=== PATIENT | male | born 1950 | race Caucasian/White ===

== ENCOUNTER 2017-07-11 10:15 | Inpatient (IN) | payer MEDICARE ==
[~2017-07-11] VITALS: Ht 172.7 cm; Wt 86.7 kg
[2017-07-11 11:05] LABS: BASOPHILS % (AUTO) 0.5 % (0.0-5.0); EOSINOPHILS % (AUTO) 2.5 % (0.0-8.0); MEAN CORPUSCULAR HEMOGLOBIN 31.7 pg (27.0-33.0); MEAN CORPUSCULAR HGB CONC 35.5 g/dL (32.0-36.0); MEAN CORPUSCULAR VOLUME 89.3 fL (79-99); MONOCYTES % (AUTO) 10.5 % (3.0-13.0); NEUTROPHILS % (AUTO) 51.5 % (40.0-77.0); NUCLEATED RED BLOOD CELLS 0.1 % (0.0-0.19); PLATELET COUNT (AUTO) 248 K/uL (130-400); RED BLOOD CELL COUNT(AUTO) 4.25 MIL/uL (4.50-6.20); RED CELL DISTRIBUTION WIDTH 14.9 % (11.0-15.5); WHITE BLOOD COUNT (AUTO) 9.4 K/uL (4.8-10.8)
[2017-07-11 11:54] LABS: CREATININE 0.7 mg/dL (0.5-1.5); POTASSIUM 3.9 mmol/L (3.5-5.1)
[2017-07-11 11:59] LABS: ALBUMIN 3.3 g/dL (3.5-5.0); BILIRUBIN,TOTAL 0.7 mg/dL (0.2-1.0); TOTAL PROTEIN, SERUM 6.2 g/dL (6.0-8.3)
[2017-07-11] MEDS ORDERED: FAMOTIDINE 20MG TAB 20 MG TAB ONE (21:28)
[2017-07-11] MEDS ORDERED: FUROSEMIDE 20 MG TABLET ONE (21:28)
[2017-07-11] MEDS ORDERED: ENOXAPARIN SODIUM 40 MG/0.4 ML SYRINGE SQ ONE (21:28)
[2017-07-12] MEDS ORDERED: ACETAMINOPHEN EXTRA STRENGTH 500 MG TABLET ONE (05:20)
[2017-07-12 08:14] VITALS: BP 158/91
[2017-07-12] MEDS ORDERED: FAMOTIDINE 20MG TAB 20 MG TAB ONE (08:50)
[2017-07-12] MEDS ORDERED: FAMOTIDINE 20MG TAB 20 MG TAB PO SCH (09:00)
[2017-07-12] MEDS ORDERED: ENOXAPARIN SODIUM 40 MG/0.4 ML SYRINGE SQ SCH (09:00)
[2017-07-12 14:38] VITALS: BP 148/59
[2017-07-12] MEDS ORDERED: IOPAMIDOL-370 75 ML VIAL IV ONE (14:59)
[2017-07-12 16:00] VITALS: BP 152/95
[2017-07-12] MEDS ORDERED: CALC-866 PO (17:52)
[2017-07-12] MEDS ORDERED: MULT-12 PO (17:52)
[2017-07-12] MEDS ORDERED: FAMO-136 PO (17:52)
[2017-07-12] MEDS ORDERED: ASPI-1197 PO (17:52)
[2017-07-12] MEDS ORDERED: CITA20TA17 PO (17:52)
[2017-07-12] MEDS ORDERED: LISI-613 PO (17:52)
[2017-07-12] MEDS ORDERED: APIX5TAB4 PO (17:52)
[2017-07-12] MEDS ORDERED: DILT180C63 PO (17:52)
[2017-07-12] MEDS ORDERED: ATOR10 PO (17:52)
[2017-07-12] MEDS ORDERED: FOLI1TAB15 PO (17:52)
[2017-07-12] MEDS ORDERED: DIGO0.12 PO (17:52)
[2017-07-12] MEDS ORDERED: METO-409 PO (17:52)
[2017-07-12 19:00] VITALS: BP 132/81
[2017-07-12] MEDS: ENOXAPARIN SODIUM 80 MG/0.8 ML SQ SCH (21:26)
[2017-07-12] MEDS ORDERED: MORPHINE SULFATE 2 MG/ML 1ML SYG ONE (22:34)
[2017-07-12] MEDS ORDERED: GABAPENTIN 300 MG CAPSULE ONE (22:35)
[2017-07-12] MEDS: GABAPENTIN 300 MG CAPSULE PO SCH (22:45)
[2017-07-13] VITALS: BP 154/78
[2017-07-13 04:00] VITALS: BP 153/85
[2017-07-13 04:18] LABS: MEAN CORPUSCULAR HGB CONC 35.6 g/dL (32.0-36.0); MEAN CORPUSCULAR VOLUME 89.9 fL (79-99); NUCLEATED RED BLOOD CELLS 0.1 % (0.0-0.19); PLATELET COUNT (AUTO) 243 K/uL (130-400); RED BLOOD CELL COUNT(AUTO) 4.23 MIL/uL (4.50-6.20); RED CELL DISTRIBUTION WIDTH 15.3 % (11.0-15.5); WHITE BLOOD COUNT (AUTO) 7.7 K/uL (4.8-10.8)
[2017-07-13 04:19] LABS: CREATININE 0.8 mg/dL (0.5-1.5); POTASSIUM 3.3 mmol/L (3.5-5.1)
[2017-07-13 04:50] LABS: EOSINOPHILS % (MANUAL) 1 % (1-6); LYMPHOCYTES % (MANUAL) 31 % (22-44); MAN.DIFF COMMENT-IMPRESSION MANUAL DIFFERENTIAL; MONOCYTES % (MANUAL) 11 % (2-9); PLATELET MORPHOLOGY COMMENT ADEQUATE; SEGMENTED NEUTROPHILS % 57 % (40-70)
[2017-07-13 08:35] VITALS: BP 136/96
[2017-07-13] MEDS: ENOXAPARIN SODIUM 80 MG/0.8 ML SQ SCH ×2 (10:00→21:22)
[2017-07-13] MEDS: MORPHINE SULFATE 2 MG/ML 1ML SYG IVP PRN (10:01)
[2017-07-13] MEDS: GABAPENTIN 300 MG CAPSULE PO SCH ×2 (10:01→21:21)
[2017-07-13 11:52] VITALS: BP 149/96
[2017-07-13] MEDS ORDERED: METOPROLOL TARTRATE 50 MG TAB ONE (14:33)
[2017-07-13] MEDS ORDERED: DIGOXIN 125 MCG TABLET PO SCH (16:00)
[2017-07-13] MEDS ORDERED: POTASSIUM CHLORIDE 20MEQ/100ML 100 ML IV PRN (16:15)
[2017-07-13] MEDS ORDERED: POTASSIUM CHLORIDE 10% ELIXIR 20 MEQ/15 ML UDCUP PO PRN (16:15)
[2017-07-13] MEDS ORDERED: LIDOCAINE HCL-MPF 1% 2ML VIAL IVP PRN (16:15)
[2017-07-13 16:18] VITALS: BP 136/78
[2017-07-13] MEDS ORDERED: METOPROLOL TARTRATE 50 MG TAB PO ONE (16:30)
[2017-07-13] MEDS: POTASSIUM CHLORIDE 20 MEQ ERTAB PO PRN ×3 (17:01→22:56)
[2017-07-13 19:10] VITALS: BP 147/87
[2017-07-13] MEDS ORDERED: APIXABAN 5 MG TABLET PO SCH (21:00)
[2017-07-13] MEDS: METOPROLOL TARTRATE 50 MG TAB PO SCH (21:21)
[2017-07-13] MEDS: CITALOPRAM 20 MG TABLET PO SCH (21:21)
[2017-07-13] MEDS: ATORVASTATIN CALCIUM 10 MG TABLET PO SCH (21:21)
[2017-07-13] MEDS: FAMOTIDINE 20MG TAB 20 MG TAB PO SCH (21:23)
[2017-07-14 00:14] VITALS: BP 145/82
[2017-07-14] MEDS: MORPHINE SULFATE 2 MG/ML 1ML SYG IVP PRN (00:19)
[2017-07-14 03:50] VITALS: BP 126/78
[2017-07-14 03:58] LABS: BASOPHILS % (AUTO) 0.7 % (0.0-5.0); EOSINOPHILS % (AUTO) 2.5 % (0.0-8.0); HEMATOCRIT 37.7 % (42-54); LYMPHOCYTES % (AUTO) 35.2 % (21.0-51.0); MEAN CORPUSCULAR HEMOGLOBIN 31.6 pg (27.0-33.0); MEAN CORPUSCULAR HGB CONC 35.2 g/dL (32.0-36.0); MEAN CORPUSCULAR VOLUME 89.7 fL (79-99); MONOCYTES % (AUTO) 12.7 % (3.0-13.0); NEUTROPHILS % (AUTO) 48.9 % (40.0-77.0); NUCLEATED RED BLOOD CELLS 0.1 % (0.0-0.19); PLATELET COUNT (AUTO) 248 K/uL (130-400); WHITE BLOOD COUNT (AUTO) 8.6 K/uL (4.8-10.8)
[2017-07-14 04:06] LABS: CREATININE 0.8 mg/dL (0.5-1.5); POTASSIUM 4.3 mmol/L (3.5-5.1)
[2017-07-14 08:22] VITALS: BP 147/93
[2017-07-14] MEDS: CHOLECALCIFEROL 5000 UNIT PO SCH (09:00)
[2017-07-14 11:00] VITALS: BP 139/88
[2017-07-14] MEDS: ASPIRIN 81MG TAB.CHEW PO SCH (11:05)
[2017-07-14] MEDS: DILTIAZEM HCL 180 MG CAP.SR.24H PO SCH (11:05)
[2017-07-14] MEDS: METOPROLOL TARTRATE 50 MG TAB PO SCH ×2 (11:06→21:08)
[2017-07-14] MEDS: MULTIVITAMIN TABLET PO SCH (11:06)
[2017-07-14] MEDS: FOLIC ACID 1 MG TABLET PO SCH (11:06)
[2017-07-14] MEDS: FAMOTIDINE 20MG TAB 20 MG TAB PO SCH ×2 (11:06→21:08)
[2017-07-14] MEDS: LISINOPRIL 20 MG TABLET PO SCH (11:06)
[2017-07-14] MEDS: GABAPENTIN 300 MG CAPSULE PO SCH ×2 (11:06→21:09)
[2017-07-14] MEDS: ENOXAPARIN SODIUM 80 MG/0.8 ML SQ SCH ×2 (11:09→21:08)
[2017-07-14 16:00] VITALS: BP 118/84
[2017-07-14] MEDS: DIGOXIN 125 MCG TABLET PO SCH (16:50)
[2017-07-14] MEDS: VALACYCLOVIR HCL 500 MG TABLET PO SCH ×2 (16:51→21:08)
[2017-07-14] MEDS: IPRATROPIUM 0.5 MG/2.5 ML INH IH SCH ×2 (19:02→23:43)
[2017-07-14 19:49] VITALS: BP 147/85
[2017-07-14] MEDS: ATORVASTATIN CALCIUM 10 MG TABLET PO SCH (21:07)
[2017-07-14] MEDS: CITALOPRAM 20 MG TABLET PO SCH (21:08)
[2017-07-14] MEDS ORDERED: MORPHINE SULFATE 4 MG/1ML SYG ONE (22:53)
[2017-07-15] VITALS: BP 138/80
[2017-07-15 03:54] VITALS: BP 140/67
[2017-07-15 05:01] LABS: BASOPHILS % (AUTO) 0.7 % (0.0-5.0); EOSINOPHILS % (AUTO) 1.8 % (0.0-8.0); HEMATOCRIT 36.6 % (42-54); LYMPHOCYTES % (AUTO) 35.2 % (21.0-51.0); MEAN CORPUSCULAR HEMOGLOBIN 31.8 pg (27.0-33.0); MEAN CORPUSCULAR HGB CONC 35.3 g/dL (32.0-36.0); MEAN CORPUSCULAR VOLUME 90.1 fL (79-99); MONOCYTES % (AUTO) 15.6 % (3.0-13.0); NEUTROPHILS % (AUTO) 46.7 % (40.0-77.0); NUCLEATED RED BLOOD CELLS 0.1 % (0.0-0.19); PLATELET COUNT (AUTO) 236 K/uL (130-400); RED BLOOD CELL COUNT(AUTO) 4.06 MIL/uL (4.50-6.20); RED CELL DISTRIBUTION WIDTH 15.2 % (11.0-15.5); WHITE BLOOD COUNT (AUTO) 7.9 K/uL (4.8-10.8)
[2017-07-15 05:11] LABS: INR 0.95 (0.85-1.15); PARTIAL THROMBOPLASTIN TIME 29.7 SEC (26.3-35.5)
[2017-07-15 05:16] LABS: ALBUMIN 2.8 g/dL (3.5-5.0); BILIRUBIN,TOTAL 0.6 mg/dL (0.2-1.0); CREATININE 0.7 mg/dL (0.5-1.5); MAGNESIUM 1.4 mg/dL (1.80-2.40); PHOSPHORUS 4.5 mg/dL (2.5-4.9); POTASSIUM 3.7 mmol/L (3.5-5.1); TOTAL PROTEIN, SERUM 6.1 g/dL (6.0-8.3)
[2017-07-15] MEDS: IPRATROPIUM 0.5 MG/2.5 ML INH IH SCH ×3 (06:53→18:00)
[2017-07-15 08:00] VITALS: BP 152/96
[2017-07-15] MEDS: CHOLECALCIFEROL 5000 UNIT PO SCH (09:00)
[2017-07-15] MEDS ORDERED: HYDROXYZINE HCL 25 MG TABLET PO PRN (09:45)
[2017-07-15] MEDS: MULTIVITAMIN TABLET PO SCH (10:10)
[2017-07-15] MEDS: FAMOTIDINE 20MG TAB 20 MG TAB PO SCH (10:10)
[2017-07-15] MEDS: LISINOPRIL 20 MG TABLET PO SCH (10:10)
[2017-07-15] MEDS: GABAPENTIN 300 MG CAPSULE PO SCH (10:11)
[2017-07-15] MEDS: VALACYCLOVIR HCL 500 MG TABLET PO SCH (10:11)
[2017-07-15] MEDS: FOLIC ACID 1 MG TABLET PO SCH (10:11)
[2017-07-15] MEDS: DILTIAZEM HCL 180 MG CAP.SR.24H PO SCH (10:11)
[2017-07-15] MEDS: METOPROLOL TARTRATE 50 MG TAB PO SCH (10:12)
[2017-07-15] MEDS: ASPIRIN 81MG TAB.CHEW PO SCH (10:12)
[2017-07-15] MEDS: ENOXAPARIN SODIUM 80 MG/0.8 ML SQ SCH (10:13)
[2017-07-15 11:42] VITALS: BP 137/80
[2017-07-15 16:00] VITALS: BP 138/81
[2017-07-15] MEDS: DIGOXIN 125 MCG TABLET PO SCH (17:52)
== END 2017-07-15 19:20 | disposition home or self-care (01) | DRG 175 ==
LOC: EDH 10:15 → EDHIP 17:07 → 3AH 07-12 15:20 → 3CH 07-14 10:39
PROVIDERS: ADMIT Family Medicine; ATTEND Family Medicine
DX: I26.99 Other pulmonary embolism without acute cor pulmonale (principal); J96.90 Respiratory failure, unspecified, unspecified whether with hypoxia or hypercapnia; I50.33 Acute on chronic diastolic (congestive) heart failure; J18.9 Pneumonia, unspecified organism; B02.9 Zoster without complications; D89.9 Disorder involving the immune mechanism, unspecified; I11.0 Hypertensive heart disease with heart failure; I48.2 Chronic atrial fibrillation; J44.1 Chronic obstructive pulmonary disease with (acute) exacerbation; J44.0 Chronic obstructive pulmonary disease with (acute) lower respiratory infection; E78.5 Hyperlipidemia, unspecified; E66.01 Morbid (severe) obesity due to excess calories; I48.91 Unspecified atrial fibrillation; M19.90 Unspecified osteoarthritis, unspecified site; L29.9 Pruritus, unspecified; R20.3 Hyperesthesia; Z78.9 Other specified health status; Z68.29 Body mass index [BMI] 29.0-29.9, adult; Z79.01 Long term (current) use of anticoagulants; Z87.891 Personal history of nicotine dependence; Z86.711 Personal history of pulmonary embolism; Z82.49 Family history of ischemic heart disease and other diseases of the circulatory system
CPT/HCPCS: 36415; 71045; 71275; 80048; 80053; 83605; 83735; 83880; 84100; 84484; 85025; 85378; 85610; 85730; 87040; 93005; 93306; 93970; 94640; 94664; J1650; J2270; Q9967

== ENCOUNTER 2020-07-02 10:20 | Inpatient (IN) | payer MEDICARE ==
[~2020-07-02] VITALS: Ht 172.7 cm; Wt 100.7 kg
[~2020-07-02 10:20] MED LIST: ASPI-1197 PO; ATOR10 PO; CALC-866 PO; CITA20TA17 PO; DIGO0.12 PO; DILT180C63 PO; FAMO-136 PO; FOLI1TAB15 PO; LISI20TA24 PO; METO-409 PO; MULT-13 PO
[2020-07-02 10:42] LABS: ABG BASE EXCESS 0.8 mmol/L (-2.0-3.0); ABG PCO2 44 mmHg (35-48)
[2020-07-02 10:48] LABS: BASOPHILS % (AUTO) 0.8 % (0.0-5.0); EOSINOPHILS % (AUTO) 0.8 % (0.0-8.0); HEMATOCRIT 44.3 % (42-54); LYMPHOCYTES % (AUTO) 24.7 % (21.0-51.0); MEAN CORPUSCULAR HEMOGLOBIN 33.1 pg (27.0-33.0); MEAN CORPUSCULAR VOLUME 94.7 fL (79-99); MONOCYTES % (AUTO) 8.5 % (3.0-13.0); PLATELET COUNT (AUTO) 271 K/uL (130-400); RED BLOOD CELL COUNT(AUTO) 4.68 MIL/uL (4.50-6.20); RED CELL DISTRIBUTION WIDTH 13.7 % (11.0-15.5); WHITE BLOOD COUNT (AUTO) 9.5 K/uL (4.8-10.8)
[2020-07-02 11:00] LABS: CREATININE 0.9 mg/dL (0.5-1.5); POTASSIUM 3.7 mmol/L (3.5-5.1)
[2020-07-02 11:09] LABS: ALBUMIN 3.4 g/dL (3.5-5.0); BILIRUBIN,TOTAL 0.3 mg/dL (0.2-1.0); TOTAL PROTEIN, SERUM 7.4 g/dL (6.0-8.3)
[2020-07-02] MEDS ORDERED: ZOSYN 3.375GM+NS 50ML 50 ML IV ONE (11:13)
[2020-07-02] MEDS ORDERED: 0.9%NACL 1000ML 1,000 ML IV ONE (11:14)
[2020-07-02 11:26] LABS: INR 1.04 (0.85-1.15); PROTHROMBIN TIME 11.3 SEC (9.6-11.6)
[2020-07-02 11:27] LABS: PARTIAL THROMBOPLASTIN TIME 26.7 SEC (26.3-35.5)
[2020-07-02 13:11] LABS: AMPHET/METH SCREEN,URINE NEGATIVE (NEGATIVE); BARBITURATE SCREEN, URINE NEGATIVE (NEGATIVE); BENZODIAZEPINES SCREEN,URINE NEGATIVE (NEGATIVE); CANNABINOID SCREEN,URINE NEGATIVE (NEGATIVE); COCAINE SCREEN,URINE NEGATIVE (NEGATIVE); OPIATE SCREEN,URINE NEGATIVE (NEGATIVE); PHENCYCLIDINE SCREEN,URINE NEGATIVE (NEGATIVE)
[2020-07-02] MEDS ORDERED: IOHEXOL-350 75 ML VIAL IV ONE (13:21)
[2020-07-02] MEDS ORDERED: GABAPENTIN 300 MG CAPSULE ONE (16:30)
[2020-07-02] MEDS ORDERED: METOPROLOL TARTRATE 50 MG TAB ONE (16:30)
[2020-07-02] MEDS ORDERED: LORAZEPAM 2 MG/ML 1 ML VIAL ONE (16:37)
[2020-07-02] MEDS ORDERED: ISOSORBIDE DINITRATE 20MG TAB PO SCH (16:45)
[2020-07-02] MEDS ORDERED: THIAMINE HCL 100 MG, FOLIC ACID 1 MG, M.V.I. IV [ADULT] 10 ML in 0.9%NACL 1000ML 1,000 ML IV SCH (16:45)
[2020-07-02] MEDS ORDERED: LORAZEPAM 2 MG/ML 1 ML VIAL IVP PRN (16:45)
[2020-07-02] MEDS ORDERED: PHARMACY COMMUNICATION MISC PRN (16:45)
[2020-07-02] MEDS ORDERED: CHLORDIAZEPOXIDE HCL 25 MG CAP PO PRN (16:45)
[2020-07-02] MEDS ORDERED: MORPHINE 2 MG SYG IV PRN (17:00)
[2020-07-02] MEDS ORDERED: ACETAMINOPHEN 325 MG TAB PO PRN ×2 (17:00)
[2020-07-02] MEDS ORDERED: ONDANSETRON 4MG INJ IV PRN (17:00)
[2020-07-02] MEDS ORDERED: AZITHROMYCIN 500MG+NS 250ML 250 ML IV SCH (17:00)
[2020-07-02] MEDS: DOXYCYCLINE 100MG+NS 250ML 250 ML IV SCH (17:00)
[2020-07-02] MEDS ORDERED: CEFTRIAXONE 1G VIAL IV SCH (17:00)
[2020-07-02 17:14] LABS: HEMOGLOBIN A1C 5.5 % (4.0-6.0)
[2020-07-02] MEDS ORDERED: FUROSEMIDE 20MG VIAL ONE (17:23)
[2020-07-02] MEDS ORDERED: AZITHROMYCIN 500MG+NS 250ML 250 ML IV ONE (17:24)
[2020-07-02] MEDS ORDERED: ENOXAPARIN SODIUM 30 MG/0.3 ML SQ ONE (17:24)
[2020-07-02] MEDS: IPRATROPIUM/ALBUTEROL SULFATE 3 ML SOLUTION IH SCH ×3 (18:00→22:44)
[2020-07-02 18:14] LABS: INR 1.03 (0.85-1.15); PROTHROMBIN TIME 11.2 SEC (9.6-11.6)
[2020-07-02 18:15] LABS: PARTIAL THROMBOPLASTIN TIME 24.8 SEC (26.3-35.5)
[2020-07-02] MEDS ORDERED: AMP/SULBAC 1.5GM+NS 100ML 100 ML IV SCH (18:45)
[2020-07-02] MEDS ORDERED: FUROSEMIDE 20MG VIAL IV SCH (21:00)
[2020-07-02] MEDS ORDERED: FAMOTIDINE 20MG VIAL IV SCH (21:00)
[2020-07-02] MEDS ORDERED: DOXYCYCLINE 100MG+NS 250ML 250 ML IV ONE (21:36)
[2020-07-02] MEDS ORDERED: FAMOTIDINE 20MG VIAL IV ONE (21:37)
[2020-07-02] MEDS: ALBUTEROL INHALER 90MCG/INH IH SCH (22:00)
[2020-07-02 22:15] VITALS: BP 185/113
[2020-07-02 23:57] VITALS: BP 178/102
[2020-07-03] MEDS: LABETALOL 20MG SYG IV PRN ×2 (01:02→05:04)
[2020-07-03] MEDS: IPRATROPIUM/ALBUTEROL SULFATE 3 ML SOLUTION IH SCH ×2 (01:49→06:13)
[2020-07-03] MEDS: ALBUTEROL INHALER 90MCG/INH IH SCH (02:00)
[2020-07-03] MEDS ORDERED: ISOS20TA10 PO (02:09)
[2020-07-03] MEDS ORDERED: POTA10CA44 PO (02:09)
[2020-07-03] MEDS ORDERED: HYDR-4154 PO (02:09)
[2020-07-03] MEDS ORDERED: RIVA20TA PO (02:09)
[2020-07-03] MEDS ORDERED: GABA600T10 PO (02:09)
[2020-07-03] MEDS ORDERED: BUPR-74 PO (02:09)
[2020-07-03] MEDS ORDERED: MIRT-22 PO (02:09)
[2020-07-03 03:25] VITALS: BP 185/97
[2020-07-03] MEDS: DOXYCYCLINE 100MG+NS 250ML 250 ML IV SCH (05:05)
[2020-07-03 05:06] LABS: BASOPHILS % (AUTO) 0.8 % (0.0-5.0); EOSINOPHILS % (AUTO) 0.9 % (0.0-8.0); HEMATOCRIT 37.9 % (42-54); MEAN CORPUSCULAR HEMOGLOBIN 32.3 pg (27.0-33.0); MEAN CORPUSCULAR HGB CONC 34.6 g/dL (32.0-36.0); MEAN CORPUSCULAR VOLUME 93.6 fL (79-99); MONOCYTES % (AUTO) 11.7 % (3.0-13.0); NEUTROPHILS % (AUTO) 65.5 % (40.0-77.0); PLATELET COUNT (AUTO) 199 K/uL (130-400); RED BLOOD CELL COUNT(AUTO) 4.05 MIL/uL (4.50-6.20); RED CELL DISTRIBUTION WIDTH 13.2 % (11.0-15.5); WHITE BLOOD COUNT (AUTO) 9.1 K/uL (4.8-10.8)
[2020-07-03 05:18] LABS: ALBUMIN 2.9 g/dL (3.5-5.0); BILIRUBIN,TOTAL 0.6 mg/dL (0.2-1.0); CREATININE 1.1 mg/dL (0.5-1.5); POTASSIUM 3.1 mmol/L (3.5-5.1)
[2020-07-03] MEDS ORDERED: AMP/SULBAC 1.5GM+NS 100ML 100 ML IV SCH (06:00)
[2020-07-03 06:14] VITALS: BP 152/89
[2020-07-03 08:00] VITALS: BP_SYST 179; BP_SYST 84; BP_DIAS 50; BP_DIAS 89
[2020-07-03] MEDS ORDERED: ATORVASTATIN 20 MG TABLET PO SCH (09:00)
[2020-07-03] MEDS ORDERED: BUPROPION HCL 150 MG TABLET.SA PO SCH (09:00)
[2020-07-03] MEDS ORDERED: ASPIRIN 81MG CHEW TAB PO SCH (09:00)
[2020-07-03] MEDS ORDERED: ISOSORBIDE DINITRATE 20MG TAB PO SCH (09:00)
[2020-07-03] MEDS ORDERED: ENOXAPARIN SODIUM 30 MG/0.3 ML SQ SCH (09:00)
[2020-07-03] MEDS ORDERED: RIVAROXABAN 20 MG TABLET PO SCH ×2 (09:00→10:45)
[2020-07-03] MEDS ORDERED: GABAPENTIN 300 MG CAPSULE PO SCH (10:17)
[2020-07-03] MEDS ORDERED: HYDRALAZINE 25MG TABLET PO SCH (10:18)
[2020-07-03] MEDS ORDERED: POTASSIUM CHLORIDE 10MEQ SR TAB PO SCH (10:18)
[2020-07-03] MEDS ORDERED: MIRTAZAPINE 15 MG TABLET PO SCH (17:00)
== END 2020-07-03 10:37 | disposition left against medical advice (07) | DRG 189 ==
LOC: EDH 10:20 → EDHIP 16:46 → 4DH 22:19 → UNDODISIN 07-03 10:37
PROVIDERS: ADMIT Family Medicine; ATTEND Family Medicine
DX: J96.01 Acute respiratory failure with hypoxia (principal); J15.9 Unspecified bacterial pneumonia; J81.1 Chronic pulmonary edema; E87.2 Acidosis; I42.9 Cardiomyopathy, unspecified; J44.0 Chronic obstructive pulmonary disease with (acute) lower respiratory infection; F10.129 Alcohol abuse with intoxication, unspecified; Z20.822 Contact with and (suspected) exposure to COVID-19; I48.91 Unspecified atrial fibrillation; Y90.8 Blood alcohol level of 240 mg/100 ml or more; I10 Essential (primary) hypertension; E78.5 Hyperlipidemia, unspecified; Z87.01 Personal history of pneumonia (recurrent); Z95.0 Presence of cardiac pacemaker; Z80.42 Family history of malignant neoplasm of prostate; Z82.49 Family history of ischemic heart disease and other diseases of the circulatory system; Z79.899 Other long term (current) drug therapy; Z79.82 Long term (current) use of aspirin
CPT/HCPCS: 36415; 36600; 71045; 71275; 80053; 80305; 82803; 83036; 83605; 83880; 84145; 84484; 85025; 85610; 85730; 86738; 87040; 87426; 87449; 87637; 87804; 93005; 94640; 94664; G0378; J0295; J0456; J1650; J1940; J2060; J2543; J3411; J3490; J7030; Q9967; U0003

== ENCOUNTER 2021-07-23 11:22 | Inpatient (IN) | payer MEDICARE ==
[~2021-07-23] VITALS: Ht 172.7 cm; Wt 93.3 kg
[~2021-07-23 11:22] MED LIST changes: +ASCO500T10 PO; -ASPI-1197 PO; -ATOR10 PO; +ATOR20TA65 PO; +AZIT500T4 PO; +BUME2TAB5 PO; +BUPR-74 PO; +CALC-259 PO; -CITA20TA17 PO; +CYAN250010 PO; -DIGO0.12 PO; -DILT180C63 PO; +DILT360C38 PO; -FAMO-136 PO; +FAMO20TA8 PO; +GABA600T10 PO; +GLUC-172 PO; +HYDR-4154 PO; +IPRA3AMP24 IH; +ISOS20TA10 PO; +KRIL1CAP19 PO; -LISI20TA24 PO; +MAGN250T39 PO; +MIRT-22 PO; +NITR0.4T50 SL; +PANT40TA54 PO; +POLY17PO4 PO; +POTA10CA44 PO; +RIVA20TA PO; +THIA100T75 PO; +ZINC220T4 PO
[2021-07-23 11:40] LABS: BASOPHILS % (AUTO) 0.7 % (0.0-5.0); EOSINOPHILS % (AUTO) 4.5 % (0.0-8.0); HEMATOCRIT 35.3 % (42-54); LYMPHOCYTES % (AUTO) 30.1 % (21.0-51.0); MEAN CORPUSCULAR HEMOGLOBIN 30.8 pg (27.0-33.0); MEAN CORPUSCULAR HGB CONC 33.1 g/dL (32.0-36.0); MEAN CORPUSCULAR VOLUME 92.9 fL (79-99); NEUTROPHILS % (AUTO) 58.2 % (40.0-77.0); PLATELET COUNT (AUTO) 366 K/uL (130-400); RED CELL DISTRIBUTION WIDTH 17.2 % (11.0-15.5); WHITE BLOOD COUNT (AUTO) 8.8 K/uL (4.8-10.8)
[2021-07-23 11:47] LABS: CREATININE 1.4 mg/dL (0.5-1.5); POTASSIUM 4.1 mmol/L (3.5-5.1)
[2021-07-23 11:51] LABS: ALBUMIN 3.2 g/dL (3.5-5.0); BILIRUBIN,TOTAL 0.3 mg/dL (0.2-1.0); TOTAL PROTEIN, SERUM 7.1 g/dL (6.0-8.3)
[2021-07-23] MEDS ORDERED: IOHEXOL-350 75 ML VIAL IV ONE (12:37)
[2021-07-23] MEDS ORDERED: DEXAMETHASONE SOD PHOSPHATE 4 MG/ML 1ML VIAL IV SCH (13:30)
[2021-07-23] MEDS ORDERED: CEFEPIME HCL 2 GM VIAL IVP SCH (14:30)
[2021-07-23] MEDS: FUROSEMIDE 20MG VIAL IV SCH (14:49)
[2021-07-23] MEDS: DOXYCYCLINE 100MG+NS 250ML IV SCH (14:49)
[2021-07-23] MEDS ORDERED: FAMOTIDINE 20MG TAB PO PRN (18:00)
[2021-07-23 18:48] LABS: ABG BASE EXCESS -1.8 mmol/L (-2.0-3.0); ABG HCO3 22.9 mmol/L (21.0-28.0); ABG OXYGEN SATURATION 97.1 % (95.0-99.0); ABG PCO2 39 mmHg (35-48)
[2021-07-23] MEDS ORDERED: FLUT1BLS3 PO (18:49)
[2021-07-23] MEDS ORDERED: VENTOLIN HFA IH PRN (19:00)
[2021-07-23 20:20] VITALS: BP 131/75
[2021-07-23] MEDS: ATORVASTATIN 20 MG TABLET PO SCH (21:12)
[2021-07-23] MEDS: GABAPENTIN 300 MG CAPSULE PO SCH (21:12)
[2021-07-23] MEDS: HYDRALAZINE 25MG TABLET PO SCH (21:13)
[2021-07-23] MEDS: ISOSORBIDE DINITRATE 20MG TAB PO SCH (21:13)
[2021-07-23] MEDS: METOPROLOL SUCCINATE 50 MG TAB.SR.24H PO SCH (21:13)
[2021-07-23] MEDS: MIRTAZAPINE 15 MG TABLET PO SCH (21:13)
[2021-07-24] VITALS: BP 128/73
[2021-07-24] MEDS: CEFTRIAXONE 1G VIAL IVP SCH ×2 (00:09→20:27)
[2021-07-24 02:58] LABS: BASOPHILS % (AUTO) 0.2 % (0.0-5.0); HEMATOCRIT 35.5 % (42-54); LYMPHOCYTES % (AUTO) 16.2 % (21.0-51.0); MEAN CORPUSCULAR HEMOGLOBIN 30.7 pg (27.0-33.0); MEAN CORPUSCULAR HGB CONC 33.5 g/dL (32.0-36.0); MEAN CORPUSCULAR VOLUME 91.7 fL (79-99); MONOCYTES % (AUTO) 1.5 % (3.0-13.0); NEUTROPHILS % (AUTO) 81.7 % (40.0-77.0); PLATELET COUNT (AUTO) 331 K/uL (130-400); RED BLOOD CELL COUNT(AUTO) 3.87 MIL/uL (4.50-6.20); RED CELL DISTRIBUTION WIDTH 16.7 % (11.0-15.5); WHITE BLOOD COUNT (AUTO) 5.4 K/uL (4.8-10.8)
[2021-07-24 03:12] LABS: CREATININE 1.2 mg/dL (0.5-1.5); POTASSIUM 4.5 mmol/L (3.5-5.1)
[2021-07-24] MEDS: DOXYCYCLINE 100MG+NS 250ML IV SCH ×2 (03:17→14:23)
[2021-07-24] MEDS: FUROSEMIDE 20MG VIAL IV SCH (03:18)
[2021-07-24 04:00] VITALS: BP 139/73
[2021-07-24 08:00] VITALS: BP 137/77
[2021-07-24] MEDS: FOLIC ACID 1 MG TABLET PO SCH (08:48)
[2021-07-24] MEDS: HYDRALAZINE 25MG TABLET PO SCH ×3 (08:48→20:29)
[2021-07-24] MEDS: CYANOCOBALAMIN (VITAMIN B-12) 1,000 MCG TABLET PO SCH (08:49)
[2021-07-24] MEDS: DILTIAZEM 180MG SR CAP PO SCH (08:50)
[2021-07-24] MEDS: ASCORBIC ACID 500 MG TAB PO SCH (08:51)
[2021-07-24] MEDS: GABAPENTIN 300 MG CAPSULE PO SCH ×3 (08:51→20:28)
[2021-07-24] MEDS: METOPROLOL SUCCINATE 50 MG TAB.SR.24H PO SCH ×2 (08:52→20:29)
[2021-07-24] MEDS: FLUCONAZOLE 400 MG/NS 200 ML 200 ML IV SCH (08:52)
[2021-07-24] MEDS: PANTOPRAZOLE 40 MG TAB DR PO SCH (08:52)
[2021-07-24] MEDS: BUPROPION HCL 150 MG TABLET.SA PO SCH (08:53)
[2021-07-24] MEDS: MAGNESIUM OXIDE 250 MG PO SCH (09:00)
[2021-07-24] MEDS: THIAMINE HCL 100 MG TABLET PO SCH (09:00)
[2021-07-24] MEDS: ISOSORBIDE DINITRATE 20MG TAB PO SCH ×3 (09:00→20:28)
[2021-07-24 12:01] VITALS: BP 136/76
[2021-07-24 16:00] VITALS: BP 136/59
[2021-07-24] MEDS ORDERED: RIVAROXABAN 20 MG TABLET PO SCH (17:00)
[2021-07-24 20:00] VITALS: BP 118/69
[2021-07-24] MEDS: MIRTAZAPINE 15 MG TABLET PO SCH (20:28)
[2021-07-24] MEDS: ATORVASTATIN 20 MG TABLET PO SCH (20:28)
[2021-07-25] VITALS (7 sets, daily range): BP systolic 120–136; BP diastolic 66–85
[2021-07-25] MEDS: DOXYCYCLINE 100MG+NS 250ML IV SCH ×2 (02:28→14:12)
[2021-07-25 03:45] LABS: BASOPHILS % (AUTO) 0.1 % (0.0-5.0); HEMATOCRIT 33.6 % (42-54); LYMPHOCYTES % (AUTO) 11.5 % (21.0-51.0); MEAN CORPUSCULAR HEMOGLOBIN 31.2 pg (27.0-33.0); MEAN CORPUSCULAR HGB CONC 33.6 g/dL (32.0-36.0); MEAN CORPUSCULAR VOLUME 92.8 fL (79-99); MONOCYTES % (AUTO) 8.7 % (3.0-13.0); NEUTROPHILS % (AUTO) 79.3 % (40.0-77.0); PLATELET COUNT (AUTO) 316 K/uL (130-400); RED BLOOD CELL COUNT(AUTO) 3.62 MIL/uL (4.50-6.20); RED CELL DISTRIBUTION WIDTH 17.2 % (11.0-15.5); WHITE BLOOD COUNT (AUTO) 10.4 K/uL (4.8-10.8)
[2021-07-25 04:09] LABS: ALBUMIN 3.1 g/dL (3.5-5.0); BILIRUBIN,TOTAL 0.4 mg/dL (0.2-1.0); CREATININE 1.1 mg/dL (0.5-1.5); POTASSIUM 3.9 mmol/L (3.5-5.1); TOTAL PROTEIN, SERUM 6.9 g/dL (6.0-8.3)
[2021-07-25 07:13] LABS: ABG PCO2 34 mmHg (35-48)
[2021-07-25] MEDS ORDERED: DOCUSATE SODIUM 100 MG CAP PO SCH (07:30)
[2021-07-25] MEDS: MAGNESIUM OXIDE 250 MG PO SCH (09:00)
[2021-07-25] MEDS: PANTOPRAZOLE 40 MG TAB DR PO SCH (09:03)
[2021-07-25] MEDS: HYDRALAZINE 25MG TABLET PO SCH ×3 (09:04→20:31)
[2021-07-25] MEDS: CYANOCOBALAMIN (VITAMIN B-12) 1,000 MCG TABLET PO SCH (09:06)
[2021-07-25] MEDS: GABAPENTIN 300 MG CAPSULE PO SCH ×3 (09:06→20:30)
[2021-07-25] MEDS: DILTIAZEM 180MG SR CAP PO SCH (09:07)
[2021-07-25] MEDS: THIAMINE HCL 100 MG TABLET PO SCH (09:07)
[2021-07-25] MEDS: BUPROPION HCL 150 MG TABLET.SA PO SCH (09:08)
[2021-07-25] MEDS: FOLIC ACID 1 MG TABLET PO SCH (09:08)
[2021-07-25] MEDS: ASCORBIC ACID 500 MG TAB PO SCH (09:08)
[2021-07-25] MEDS: ISOSORBIDE DINITRATE 20MG TAB PO SCH ×3 (09:09→20:32)
[2021-07-25] MEDS: FLUCONAZOLE 400 MG/NS 200 ML 200 ML IV SCH (09:13)
[2021-07-25] MEDS: METOPROLOL SUCCINATE 50 MG TAB.SR.24H PO SCH ×2 (09:17→20:30)
[2021-07-25] MEDS ORDERED: LACTULOSE 20 GM/30 ML UDCUP ONE (09:22)
[2021-07-25] MEDS: MIRTAZAPINE 15 MG TABLET PO SCH (20:32)
[2021-07-25] MEDS: ATORVASTATIN 20 MG TABLET PO SCH (20:32)
[2021-07-25] MEDS: CEFTRIAXONE 1G VIAL IVP SCH (23:40)
[2021-07-26] MEDS: DOXYCYCLINE 100MG+NS 250ML IV SCH ×2 (02:36→13:47)
[2021-07-26 03:43] LABS: BASOPHILS % (AUTO) 0.3 % (0.0-5.0); EOSINOPHILS % (AUTO) 2.1 % (0.0-8.0); HEMATOCRIT 33.7 % (42-54); LYMPHOCYTES % (AUTO) 18.5 % (21.0-51.0); MEAN CORPUSCULAR HEMOGLOBIN 29.9 pg (27.0-33.0); MEAN CORPUSCULAR HGB CONC 31.5 g/dL (32.0-36.0); MEAN CORPUSCULAR VOLUME 95.2 fL (79-99); MONOCYTES % (AUTO) 10.5 % (3.0-13.0); PLATELET COUNT (AUTO) 247 K/uL (130-400); RED BLOOD CELL COUNT(AUTO) 3.54 MIL/uL (4.50-6.20); RED CELL DISTRIBUTION WIDTH 17.2 % (11.0-15.5)
[2021-07-26 03:55] LABS: CREATININE 0.9 mg/dL (0.5-1.5); POTASSIUM 4.1 mmol/L (3.5-5.1)
[2021-07-26 04:24] VITALS: BP 130/81
[2021-07-26] MEDS ORDERED: 0.9% NACL 250ML 250 ML ONE (07:48)
[2021-07-26 08:00] VITALS: BP 141/81
[2021-07-26] MEDS: FLUCONAZOLE 400 MG/NS 200 ML 200 ML IV SCH (08:15)
[2021-07-26] MEDS: METOPROLOL SUCCINATE 50 MG TAB.SR.24H PO SCH ×2 (08:16→21:19)
[2021-07-26] MEDS: DILTIAZEM 180MG SR CAP PO SCH (08:16)
[2021-07-26] MEDS: FOLIC ACID 1 MG TABLET PO SCH (08:17)
[2021-07-26] MEDS: PANTOPRAZOLE 40 MG TAB DR PO SCH (08:17)
[2021-07-26] MEDS: ASCORBIC ACID 500 MG TAB PO SCH (08:17)
[2021-07-26] MEDS: BUPROPION HCL 150 MG TABLET.SA PO SCH (08:17)
[2021-07-26] MEDS: MAGNESIUM OXIDE 250 MG PO SCH (08:18)
[2021-07-26] MEDS: THIAMINE HCL 100 MG TABLET PO SCH (08:19)
[2021-07-26] MEDS: CYANOCOBALAMIN (VITAMIN B-12) 1,000 MCG TABLET PO SCH (08:19)
[2021-07-26] MEDS: GABAPENTIN 300 MG CAPSULE PO SCH ×3 (08:26→21:18)
[2021-07-26] MEDS: HYDRALAZINE 25MG TABLET PO SCH ×3 (08:26→21:19)
[2021-07-26] MEDS: ISOSORBIDE DINITRATE 20MG TAB PO SCH ×3 (08:27→21:21)
[2021-07-26 11:36] VITALS: BP 142/83
[2021-07-26 16:00] VITALS: BP 144/78
[2021-07-26 20:11] VITALS: BP 146/83
[2021-07-26] MEDS: MIRTAZAPINE 15 MG TABLET PO SCH (21:18)
[2021-07-26] MEDS: ATORVASTATIN 20 MG TABLET PO SCH (21:20)
[2021-07-27] MEDS: CEFTRIAXONE 1G VIAL IVP SCH (00:12)
[2021-07-27 00:54] VITALS: BP 137/76
[2021-07-27] MEDS: DOXYCYCLINE 100MG+NS 250ML IV SCH (02:39)
[2021-07-27 04:33] VITALS: BP 139/81
[2021-07-27 07:37] LABS: ABG BASE EXCESS 0.6 mmol/L (-2.0-3.0); ABG HCO3 25.3 mmol/L (21.0-28.0); ABG OXYGEN SATURATION 91.5 % (95.0-99.0); ABG PCO2 41 mmHg (35-48)
[2021-07-27 08:00] VITALS: BP 140/80
[2021-07-27] MEDS: MAGNESIUM OXIDE 250 MG PO SCH (08:00)
[2021-07-27] MEDS: HYDRALAZINE 25MG TABLET PO SCH (08:12)
[2021-07-27] MEDS: PANTOPRAZOLE 40 MG TAB DR PO SCH (08:13)
[2021-07-27] MEDS: GABAPENTIN 300 MG CAPSULE PO SCH (08:13)
[2021-07-27] MEDS: BUPROPION HCL 150 MG TABLET.SA PO SCH (08:13)
[2021-07-27] MEDS: CYANOCOBALAMIN (VITAMIN B-12) 1,000 MCG TABLET PO SCH (08:13)
[2021-07-27] MEDS: METOPROLOL SUCCINATE 50 MG TAB.SR.24H PO SCH (08:14)
[2021-07-27] MEDS: DILTIAZEM 180MG SR CAP PO SCH (08:14)
[2021-07-27] MEDS: THIAMINE HCL 100 MG TABLET PO SCH (08:14)
[2021-07-27] MEDS: FOLIC ACID 1 MG TABLET PO SCH (08:15)
[2021-07-27] MEDS: FLUCONAZOLE 400 MG/NS 200 ML 200 ML IV SCH (08:15)
[2021-07-27] MEDS: ASCORBIC ACID 500 MG TAB PO SCH (08:15)
[2021-07-27] MEDS: ISOSORBIDE DINITRATE 20MG TAB PO SCH (08:18)
[2021-07-27] MEDS ORDERED: DOXY100T2 PO (08:37)
[2021-07-27] MEDS ORDERED: AMOX-426 PO (08:37)
[2021-07-27 11:30] VITALS: BP 139/78
== END 2021-07-27 13:13 | disposition home or self-care (01) | DRG 177 ==
LOC: EDH 11:22 → EDHIP 14:06 → 2AH 20:18
PROVIDERS: ADMIT Internal Medicine; ATTEND Internal Medicine
DX: J15.6 Pneumonia due to other Gram-negative bacteria (principal); J96.01 Acute respiratory failure with hypoxia; I48.91 Unspecified atrial fibrillation; Z20.822 Contact with and (suspected) exposure to COVID-19; E78.00 Pure hypercholesterolemia, unspecified; Z95.0 Presence of cardiac pacemaker; I25.10 Atherosclerotic heart disease of native coronary artery without angina pectoris; K59.00 Constipation, unspecified; M79.2 Neuralgia and neuritis, unspecified; K21.9 Gastro-esophageal reflux disease without esophagitis; I11.0 Hypertensive heart disease with heart failure; I50.9 Heart failure, unspecified; E78.5 Hyperlipidemia, unspecified; Z82.49 Family history of ischemic heart disease and other diseases of the circulatory system; C61 Malignant neoplasm of prostate; Z79.01 Long term (current) use of anticoagulants; Z86.711 Personal history of pulmonary embolism; J10.08 Influenza due to other identified influenza virus with other specified pneumonia; U09.9 Post COVID-19 condition, unspecified
CPT/HCPCS: 36415; 36600; 71045; 71046; 71275; 80048; 80053; 82435; 82803; 82947; 82948; 83605; 83880; 84132; 84145; 84295; 84484; 85018; 85025; 85378; 86140; 86738; 87040; 87449; 87635; 87804; 93005; 93306; 93356; 94760; 99291; C9803; G0378; J0692; J0696; J1100; J1450; J1940; J3490; J7050; Q9967